=== PATIENT | female | born 1975 | race Caucasian/White ===

== ENCOUNTER → 2024-07-26 | Outpatient (CLI) | payer BC ==
--- NOTE | 2024-07-26 11:07 | XR ---
EXAMINATION TYPE: XR chest 2V DATE OF EXAM: 07/26/2024 11:02 AM COMPARISON: None. CLINICAL INDICATION: Female, 48 years old with history of asthma, TECHNIQUE: Frontal and lateral views of the chest are obtained. FINDINGS: There is no focal air space opacity, pleural effusion, or pneumothorax seen. The cardiac silhouette size is upper limits of normal. The osseous structures are intact. IMPRESSION: No acute cardiopulmonary process. [facility], , 07/26/2024 11:05 AM
--- NOTE | 2024-07-26 11:19 | XR ---
EXAMINATION TYPE: XR ankle complete RT DATE OF EXAM: 07/26/2024 11:02 AM COMPARISON: None. CLINICAL INDICATION: Female, 48 years old with history of M25.571 acute R ankle pain, pain TECHNIQUE: Frontal, lateral and oblique images of the right ankle are obtained. FINDINGS: There is no acute fracture/dislocation evident in the right ankle. The ankle mortise appe ars within normal limits. The overlying soft tissue appears unremarkable. There is large inferior ca lcaneal spur. There is a nonunion old Dimas type fracture at base of fifth metatarsal. There is oval 13 x 3 mm sclerotic focus in the distal tibial diaphysis anteriorly, this is nonspecific but favor be nign bone island. Consider further investigation with MRI and/or nuclear medicine bone scan if pain i s localized to this area. IMPRESSION: As above. [facility], , 07/26/2024 11:17 AM
== END | disposition home or self-care (01) ==
LOC: RADXRMAIN 10:40
PROVIDERS: ATTEND Internal Medicine
DX: J45.909 Unspecified asthma, uncomplicated (principal); S92.354K Nondisplaced fracture of fifth metatarsal bone, right foot, subsequent encounter for fracture with nonunion; M77.31 Calcaneal spur, right foot
CPT/HCPCS: 71046

== ENCOUNTER → 2024-08-02 | Outpatient (CLI) | payer BC ==
--- NOTE | 2024-08-02 09:07 | MR ---
EXAMINATION TYPE: MR tib fib RT wo/w con DATE OF EXAM: 08/02/2024 7:33 AM COMPARISON: 07/26/2024. CLINICAL INDICATION: Female, 48 years old with history of R93.7 Abnormal bone xray; M25.571 Acute rt ankle p, Right ankle pain/swelling. Abnormal Xrays. TECHNIQUE: MR tib fib RT wo/w con; Multiplanar, multisequence technique was utilized in order to study. Contrast: 11 mL Gadobutrol (none if empty) FINDINGS: Area of sclerosis along the cortex of the right distal tibia anteriorly. Measures roughly b y 4 x 4 x 12 mm. The bone marrow signal is otherwise within normal limits. Soft tissues are grossly unremarkable. No evidence for edema. No evidence organizing fluid collection or soft tissue mass. Mus dary volume is appropriate. After administration of contrast, no abnormal enhancement is seen. IMPRESSION: 1. 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 No abnormal postcontrast enhancement. 2. No evidence for organizing fluid collection or suspicious mass. [facility], , 08/02/2024 9:05 AM
== END | disposition home or self-care (01) ==
LOC: RADMRIMAIN 06:16
PROVIDERS: ATTEND Internal Medicine
DX: M89.9 Disorder of bone, unspecified (principal); R93.7 Abnormal findings on diagnostic imaging of other parts of musculoskeletal system
CPT/HCPCS: 73720; A9585

== ENCOUNTER → 2024-09-09 | Outpatient (CLI) | payer BC ==
--- NOTE | 2024-09-09 12:02 | MM ---
Reason for Exam: Screening (asymptomatic). Patient History: Menarche at age 13. Patient has no children. Premenopausal. Paternal aunt had breast cancer. Paternal cousin had breast cancer, age 45. Risk Values: Maria E 5 year model risk: 1.0%. NCI Lifetime model risk: 10.2%. Tissue Density: There are scattered areas of fibroglandular density. Findings: Analyzed By CAD. There is a mole along the medial aspect of the right breast. Areas of asymmetric density that does the superior left MLO view and ventral right cc view show no persisting abnormality on 3-D images. No significant mass, suspicious microcalcification, or other discrete abnormality is seen. Overall Assessment: Benign, BI-RAD 2 Management: Screening Mammogram of both breasts in 1 year. Patient should continue monthly self-breast exams. A clinical breast exam by your physician is recommended on an annual basis. This exam should not preclude additional follow-up of suspicious palpable abnormalities. Note on Maria E scores and lifetime risk: 1. A Maria E score greater than 3% is considered moderate risk. If this is the case, consider specialist referral to assess eligibility for a risk reducing agent. 2. If overall lifetime risk for the development of breast cancer is 20% or higher, the patient may qualify for future screening with alternating mammogram and breast MRI. [facility], , 09/09/2024 11:59 AM. Electronically signed and approved by: Karma Lozano M.D. Radiologist
== END | disposition home or self-care (01) ==
LOC: RADMAMWWP 06:57
PROVIDERS: ATTEND Internal Medicine
DX: Z12.31 Encounter for screening mammogram for malignant neoplasm of breast (principal); R92.323 Mammographic fibroglandular density, bilateral breasts; Z80.3 Family history of malignant neoplasm of breast
CPT/HCPCS: 77063; 77067